=== PATIENT | male | born 2000 | race Hispanic/Latino ===

== ENCOUNTER 2020-08-30 13:23 | Emergency (ER) | payer OTHER ==
[~2020-08-30] VITALS: Ht 160 cm; Wt 55.9 kg
[2020-08-30] MEDS ORDERED: LIDOCAINE 2% MDV 20ML VIAL SC ONE (16:15)
[2020-08-30 17:04] VITALS: BP 127/73
== END 2020-08-30 17:06 | disposition home or self-care (01) ==
LOC: M ED 13:23
DX: S01.511A Laceration without foreign body of lip, initial encounter (principal); W21.02XA Struck by soccer ball, initial encounter; Y92.9 Unspecified place or not applicable; Y93.66 Activity, soccer; Y99.9 Unspecified external cause status